=== PATIENT | male | born 1960 | race Caucasian/White ===

== ENCOUNTER 2017-03-26 15:00 | Inpatient (IN) | payer OTHER ==
[~2017-03-26] VITALS: Ht 182.9 cm; Wt 79.4 kg
--- NOTE | ~2017-03-26 | PN ---
Unit #: [id number] #: [id number] Patient: NAYA MONAE [id number] [facility] [address] [place] [address] [id number] MR#: [id number] NAME: NAYA MONAE. ROOM: P179 Age: 57 Sex: M Admission Date: 03/26/2017 : 1960 Attending Physician: Brigitte Ledezma M.D. Admitting Physician: Brigitte Ledezma M.D. Primary Care Physician: Generic Doctor Not In System [facility] PROGRESS NOTES DATE OF SERVICE 03/28/2017 DISCUSSION Mr. Monae is a 57-year-old white male who was seen today. Chart was reviewed and case was discussed with the staff. He remains anxious, withdrawn, depressed, and rather seclusive to himself. Meanwhile, he has been cooperative with the treatment recommendations and has been taking the medications and tolerating them fairly well with no reported side effects. MENTAL STATUS EXAMINATION Middle-aged white male who is casually dressed with fair personal hygiene, appears to be in no acute distress or discomfort. He was awake and alert with impaired attention and concentration. His mood is anxious with congruent affect. He denies any suicidal or homicidal ideations and also denies any auditory or visual hallucinations. His insight and judgment remain slightly impaired. TREATMENT PLAN 1. We will continue him on his current medications and treatment protocol. We will monitor his response to the medications and make further adjustments as needed. 2. We will continue to follow up. Dictated by... Lou Roberts/rehan TD: 03/28/2017 09:58 JOB #: [id number] Unit #: [id number] #: [id number] Patient: NAYA MONAE [facility] PROGRESS NOTES Page 1 of 1 X Brigitte Ledezma MD PROGRESS NOTE
--- NOTE | ~2017-03-26 | CO ---
Unit #: [id number] #: [id number] Patient: NAYA MONAE [id number] [facility] [address] [place] [address] [id number] MR#: [id number] NAME: NAYA MONAE. ROOM: P1 Age: 57 Sex: M Admission Date: 03/26/2017 : 1960 Attending Physician: Brigitte Ledezma M.D. Consultation Date: 03/28/2017 CONSULTATION REPORT ORDERING PROVIDER Dr. Ledezma. REASON FOR CONSULT Reactive RPR. SUBJECTIVE The patient does have a history of risky behaviors including drug abuse and alcohol abuse; however, he has no known knowledge of having syphilis. OBJECTIVE RPR came back positive. Confirmatory testing was not done. ASSESSMENT Positive rapid plasma reagin. PLAN Plan is to get confirmatory testing with an FTA and ABS. Nursing is to call provider on-call if this test is positive. Dictated by... Zita Bray A.P.R.N. for Lou Motta/selam TD: 03/28/2017 14:45 JOB #: [id number] CONSULTATION REPORT Page 1 of 1 X ZITA BRAY APRN CONSULTATION REPORT
--- NOTE | ~2017-03-26 | DS ---
Unit #: [id number] #: [id number] [facility]: [facility] [id number] [facility] [address] [place] [address] [id number] MR#: [id number] NAME: NAYA MONAE. ROOM: P179 Age: 57 Sex: M Admission Date: 03/26/2017 : 1960 Discharge Date: 03/31/2017 Attending Physician: Brigitte Ledezma M.D. DISCHARGE SUMMARY IDENTIFYING DATA Mr. Monae is a 57-year-old single white male, who is a resident of [place], [place], and was self-referred to the hospital on voluntary basis with a blood alcohol level of 0.130 and a chief complaint of "I've been drinking a fifth of gin a day." DISCHARGE DIAGNOSES Psychiatric: Alcohol dependence, moderate and acute withdrawals; alcohol-induced mood disorder; cocaine abuse, moderate; opioid abuse, moderate. Medical: Hypertension and coronary artery disease. Stressors: Mild psychosocial stressors. HISTORY OF PRESENT ILLNESS Please see initial psychiatric evaluation for details. PAST PSYCHIATRIC HISTORY Please see initial psychiatric evaluation for details. PAST MEDICAL HISTORY Please see initial psychiatric evaluation for details. HOSPITAL COURSE The patient was admitted to the adult psychiatric and chemical dependency unit at [facility] oswaldo Persaud and was oriented to the hospital environment. Routine p.r.n. medications were initiated, and he was started on the detox protocol and was closely monitored. He was taking the medications regularly and was tolerating them fairly well and was able to show a decent and therapeutic response and was able to come out of the detox without any complications and was wanting to go home and was willing to continue treatment on an outpatient basis and as such, it was decided that he will be discharged home and will continue treatment on an outpatient basis. DISCHARGE MEDICATIONS Ecotrin 81 mg a day for coronary artery disease, Lipitor 10 mg b.i.d. for dyslipidemia, Zestril 5 mg a day for hypertension. DISCHARGE CONDITION Stable. PROGNOSIS Fair. Unit #: [id number] #: [id number] Patient: NAYA MONAE Dictated by... Brigitte Ledezma M.D. IAA/modl TD: 04/02/2017 00:09 JOB #: [id number] DISCHARGE SUMMARY Page 1 of 1 X Brigitte Ledezma MD DISCHARGE SUMMARY
--- NOTE | ~2017-03-26 | HP ---
Unit #: [id number] #: [id number] Patient: NAYA MONAE [id number] [place] [address] [id number] MR#: [id number] NAME: NAYA MONAE. ROOM: P1 Age: 57 Sex: M Admission Date: 03/26/2017 : 1960 Attending Physician: Brigitte Ledezma M.D. Admitting Physician: Brigitte Ledezma M.D. Primary Care Physician: Generic Doctor Not In System HISTORY AND PHYSICAL HISTORY OF PRESENT ILLNESS The patient is a 57-year-old male admitted to [facility] on 03/26/2017 to detox from alcohol. PAST MEDICAL HISTORY 1. Hypertension. 2. Hyperlipidemia. PAST SURGICAL HISTORY 1. Heart stent x2. 2. Appendectomy. ALLERGIES No known drug allergies. SOCIAL HISTORY He is unemployed. He lives with his brother. He smokes 1 pack of cigarettes daily. Drinks a fifth per day of gin and has used heroin in the past. FAMILY HISTORY Noncontributory. REVIEW OF SYSTEMS CONSTITUTIONAL: No fever or chills. HEENT: Denies any sore throat, ear pain or runny nose. CARDIOVASCULAR: Denies chest pain, irregular heart rhythm or palpitations. CHEST: Denies shortness of breath or cough. No hemoptysis. GASTROINTESTINAL: Denies nausea, vomiting, diarrhea or chronic constipation. ENDOCRINE: Denies history of increased thirst or urination. No recent significant weight loss or gain. GENITOURINARY: Denies dysuria, frequency, or hematuria. SKIN: Denies any rashes. HEMATOLOGIC: Denies history of increased bleeding or bruising. MUSCULOSKELETAL: Denies any hot, swollen joints. No generalized muscle pain. NEUROLOGIC: Denies problems with vision or speech. No frequent, severe headaches. No numbness, tingling or weakness in any extremities. Denies loss of bladder or bowel control. CURRENT MEDICATIONS 1. Aspirin. Unit #: [id number] #: [id number] Patient: NAYA MONAE 2. Simvastatin. 3. Lisinopril. 4. Carvedilol. 5. Nitroglycerin. PHYSICAL EXAMINATION GENERAL: He is awake, alert, oriented, in no acute distress. VITAL SIGNS: Temperature 97.9, heart rate 89, respirations 16, blood pressure 136/79. HEIGHT: 6 feet 0. WEIGHT: 175 pounds. SKIN: Warm and dry without rash or lesion. HEENT: Normocephalic. TMs not viewed. Oral and nasal passages clear. Conjunctivae clear. PERRLA. EOMs intact. NECK: Supple without lymphadenopathy or thyromegaly. HEART: Regular rate and rhythm without murmur. LUNGS: Clear. ABDOMEN: Soft, nontender. : Not done. EXTREMITIES: No evidence of cyanosis, clubbing or edema. Moves all without focal deficit. NEUROLOGICAL: Grossly within normal limits. Cranial Nerves: II: Visual mccabe are intact. III, IV AND : Extraocular movements are intact. Pupils are equal, round and reactive to light. V: Facial sensation is grossly normal. VII: Facial movements and expression are normal. VIII: Auditory acuity grossly intact. IX, X: Uvula is midline. Phonation is normal. XI: Patient shrugs shoulders and turns head normally. XII: Tongue protrudes in the midline. Sensory and Motor Function: Sensory and motor sensation is grossly normal. Motor: moves all extremities well. Coordination: Gait is normal. Deep Tendon Reflexes: Intact. IMPRESSION 1. Psychiatric admission. 2. Hypertension. 3. Hyperlipidemia. 4. Heart disease. 5. Nicotine dependence. 6. Alcohol dependence. RECOMMENDATIONS PSYCHIATRIC: Per psychiatrist. MEDICAL: No contraindication to participate in facility's activities. MEDICAL PROGNOSIS Good. MEDICAL CONDITION Stable. Dictated by... Zita Bray A.P.R.N. Unit #: [id number] #: [id number] Patient: NAYA MONAE Reynaldo ROYAL/ale TD: 03/27/2017 22:38 JOB #: [id number] HISTORY AND PHYSICAL Page 1 of 1 X ZITA BRAY APRN HISTORY AND PHYSICAL
--- NOTE | ~2017-03-26 | PN ---
Unit #: [id number] #: [id number] Patient: NAYA MONAE [id number] [facility] [address] [place] [address] [id number] I MR#: [id number] NAME: NAYA MONAE. ROOM: P179 Age: 57 Sex: M Admission Date: 03/26/2017 : 1960 Attending Physician: Brigitte Ledezma M.D. Admitting Physician: Brigitte Ledezma M.D. Primary Care Physician: Adilene Doctor Not In System [facility] PROGRESS NOTES DATE March 30, 2017 DISCUSSION Mr. Monae is a 57-year-old white male, who was seen today and chart was reviewed and the case was discussed with the staff. He has been anxious, withdrawn, and seclusive to himself. Meanwhile, he has been cooperative with the treatment recommendations and he has been taking the medications and tolerating them fairly well with no reported side effects. MENTAL STATUS EXAMINATION Middle-aged white male, who was casually dressed with fair personal hygiene and appears to be in no acute distress or discomfort. He was awake and alert on interaction with intact orientation. His mood is anxious with a congruent affect. He denies any suicidal or homicidal ideations, and also denies any auditory or visual hallucinations. His insight and judgment remain slightly impaired. TREATMENT PLAN 1. We will continue him on his current medications and treatment protocol, and will monitor his response to the medications, and make further adjustments as needed. 2. We will continue to followup. Dictated by... Lou Roberts/gopal TD: 03/31/2017 09:06 JOB #: [id number] Unit #: [id number] #: [id number] Patient: NAYA MONAE [facility] PROGRESS NOTES Page 1 of 1 X Brigitte Ledezma MD PROGRESS NOTE
--- NOTE | ~2017-03-26 | PA ---
Unit #: [id number] #: [id number] Patient: NAYA MONAE [id number] [facility] [address] [place] [address] [id number] I MR#: [id number] NAME: NAYA MONAE. ROOM: P179 Age: 57 Sex: M Admission Date: 03/26/2017 : 1960 Date of Assessment: 03/27/2017 Attending Physician: Brigitte Ledezma M.D. Admitting Physician: Brigitte Ledezma M.D. Primary Care Physician: Generic Doctor Not In System PSYCHIATRIC ASSESSMENT IDENTIFICATION DATA The patient is a 57-year-old single white male who is a resident of [place], [place], and was self-referred to the hospital on voluntary basis. Upon presentation, he had a blood alcohol level of 0.130. CHIEF COMPLAINT "I have been drinking a fifth of gin a day." HISTORY OF PRESENT ILLNESS The patient is a 57-year-old white male with history of alcohol dependence who was brought to the hospital by his sister for alcohol dependence and reported that he has been drinking a fifth of gin on a daily basis. 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 The patient reports increasing depression, anxiety, irritability, and feelings of hopelessness and helplessness. Denies any suicidal or homicidal ideation. He also reports using heroin nasally once a month with a history of addiction to pain medication with a last use of heroin 3 months ago and reports using cocaine once a month, and the last use was 1 week ago. However, he was seen to be expressing significant depression with feelings of hopelessness and helplessness, and as such recommendation for inpatient level of care for safety and stabilization was made, and the patient was transferred to us. SUBSTANCE ABUSE HISTORY The patient reports a history of experimentation with opioids and cocaine, but alcohol has been his drug of choice. it was reported that he has been drinking since he was 12 years old and currently has been drinking a fifth of gin on a daily basis. PAST PSYCHIATRIC HISTORY The patient has had a history of chemical dependence treatment at [facility] and at [facility]. Review of the medical records indicated currently he is not active in any treatment program. He is not seeing a psychiatrist and he is not taking any psychotropic medications. PAST MEDICAL HISTORY 1. Hypertension. 2. Coronary artery disease. CURRENT MEDICATIONS None. Unit #: [id number] #: [id number] Patient: NAYA MONAE ALLERGIES No known medication allergies. PERSONAL AND SOCIAL HISTORY A 57-year-old white male who reported that he is single, unemployed, and lives with his brother and has fairly decent social support system. MENTAL STATUS EXAMINATION Middle-aged white male who is casually dressed with fair personal hygiene. Appears to be in no acute distress or discomfort. He was awake and alert and interaction with intact orientation. His mood is anxious and depressed with congruent affect. Speech is slow and goal-directed. He denies any suicidal or homicidal ideations and also denies any auditory or visual hallucinations. His insight and judgment remain significantly impaired. DIAGNOSTIC IMPRESSION PSYCHIATRIC: Alcohol dependence, moderate, in acute withdrawals. Alcohol-induced mood disorder. Cocaine abuse, moderate. Opiate abuse, moderate. MEDICAL: None. STRESSORS: Moderate psychosocial stressors. TREATMENT PLAN 1. The patient has presented with history of mood disorder and has been decompensating and will need inpatient hospitalization for safety and stabilization. We will start him back on his home medications. We will adjust the medications and monitor response. 2. Supportive therapy was provided to the patient. 3. Safe, structured, and nourishing environment will be provided. ESTIMATED LENGTH OF STAY 5 to 7 days. ABILITY TO HELP SELF Limited. WILLINGNESS TO HELP The patient appears to be willing to help self. STRENGTHS 1. Communicative. 2. Cooperative. PROBLEMS 1. Chronic dysphoric symptoms. 2. Chronic chemical dependency. 3. Poor social support system. DISCHARGE CRITERIA This will be contingent upon the patient's ability to show resolution of his depression and anxiety and his ability to stay safe to himself, particularly after discharge from the hospital. Unit #: [id number] #: [id number] Patient: NAYA MONAE Dictated by.Lou Humphrey/rehan TD: 03/27/2017 12:52 JOB #: [id number] PSYCHIATRIC ASSESSMENT Page 1 of 1 X Brigitte Ledezma MD PSYCHIATRIC ASSESSMENT
--- NOTE | ~2017-03-26 | PN ---
Unit #: [id number] #: [id number] Patient: NAYA MONAE [id number] [facility] [address] [place] [address] [id number] I MR#: [id number] NAME: NAYA MONAE. ROOM: P179 Age: 57 Sex: M Admission Date: 03/26/2017 : 1960 Attending Physician: Brigitte Ledezma M.D. Admitting Physician: Brigitte Ledezma M.D. Primary Care Physician: Generic Doctor Not In System [facility] PROGRESS NOTES DATE 03/29/2017 DISCUSSION Mr. Monae is a 57-year-old white male who was seen today and chart was reviewed and case was discussed with the staff. He has been anxious, withdrawn and somewhat irritable and showing poor insight into his situation and poor motivation and wanting to leave and stated that he does not feel comfortable here. Meanwhile, he has been taking medications and tolerating them fairly well with no reported side effects. MENTAL STATUS EXAMINATION Middle-aged white male who was casually dressed with fair personal hygiene and appears to be in no acute distress or discomfort. He was awake and alert with intact orientation. His mood was anxious with congruent affect. He denies any suicidal or homicidal ideations. His insight and judgement remains slightly impaired. TREATMENT PLAN 1. Will continue on his current medications and treatment protocol. Will monitor his response to the medications and make further adjustments as needed. 2. Will continue to follow up. Dictated by... Lou Roberts/ale TD: 03/29/2017 21:06 JOB #: [id number] Unit #: [id number] #: [id number] Patient: NAYA MONAE [facility] PROGRESS NOT[facility] Page 1 of 1 X Brigitte Ledezma MD PROGRESS NOTE
[~2017-03-26 15:00] MED LIST: CONCERTA18 MG PO; VASOTEC PO; ZOCOR PO
[2017-03-27 12:35] LABS: BASOPHIL# 0.1 X10e3 (0-0.3); BASOPHIL% 1.1 % (0-2.5); EOSINOPHIL# 0.1 X10e3 (0-0.7); EOSINOPHIL% 0.6 % (0.0-7.0); HEMATOCRIT 40.9 % (38.0-50.0); HEMOGLOBIN 13.7 gm/dL (13.0-16.0); LYMPHOCYTE# 1.4 X10e3 (1.0-3.5); LYMPHOCYTE% 16.5 % (17.0-45.0); MEAN CELL VOLUME 98.4 FL (83-96); MEAN CORPUSCULAR HEMOGLOBIN 32.9 PG (28-34); MEAN CORPUSCULAR HGB CONC 33.4 g/dL (30-36); MEAN PLATELET VOLUME 8.3 FL (6.5-11.5); MONOCYTE# 1.6 X10e3 (0-1.0); MONOCYTE% 19.1 % (3.0-12.0); NEUTROPHIL# 5.3 X10e3 (1.5-7.1); NEUTROPHIL% 62.7 % (40-75); PLATELET COUNT 279 X10e3 (140-420); RED BLOOD COUNT 4.16 X10e (3.90-5.60); RED CELL DISTRIBUTION WIDTH 14.1 % (11.0-15.5); WHITE BLOOD COUNT 8.5 X10e3 (4.0-10.5)
[2017-03-27 12:38] LABS: DIFF IND NO
[2017-03-27 13:06] LABS: ALBUMIN SERUM 3.4 g/dL (3.5-5.0); BILIRUBIN,TOTAL 0.7 mg/dL (0.2-2.0); BUN/CREATININE RATIO 11.11; CALCIUM SERUM 9.1 mg/dL (8.4-10.2); CREATININE SERUM 0.9 mg/dL (0.6-1.4); GLOM FILT RATE Estimated 93.8 mL/min (>60); POTASSIUM 4.2 mmol/L (3.5-5.1)
[2017-03-31 09:41] LABS: URINE APPEARANCE CLEAR; URINE BILIRUBIN NEG (NEG); URINE BLOOD NEG (NEG); URINE COLOR YELLOW; URINE GLUCOSE NEG (NEG); URINE KETONE NEG (NEG); URINE LEUKOCYTE ESTERASE NEG (NEG); URINE NITRATE NEG (NEG); URINE PROTEIN NEG (NEG); URINE SPECIFIC GRAVITY 1.004 (1.003-1.035); URINE UROBILINOGEN 0.2 MG/DL (NEG)
[2017-03-31 10:12] LABS: AMPHETAMINE NEG (NEG); BARBITURATES NEG (NEG); BENZODIAZEPINES NEG (NEG); COCAINE NEG (NEG); MARIJUANA NEG (NEG); OPIATES NEG (NEG); TRICYCLIC ANTIDEPRESSANTS NEG (NEG); U METHADONE NEG (NEG)
== END 2017-03-31 12:25 | DRG 897 ==
LOC: P1E 17:56
PROVIDERS: Psychiatry & Neurology Psychiatry
DX: F10.239 Alcohol dependence with withdrawal, unspecified (principal); F11.10 Opioid abuse, uncomplicated; I10 Essential (primary) hypertension; F10.24 Alcohol dependence with alcohol-induced mood disorder; Y90.6 Blood alcohol level of 120-199 mg/100 ml; I25.10 Atherosclerotic heart disease of native coronary artery without angina pectoris; F14.10 Cocaine abuse, uncomplicated; F17.210 Nicotine dependence, cigarettes, uncomplicated; E78.5 Hyperlipidemia, unspecified; R76.8 Other specified abnormal immunological findings in serum
CPT/HCPCS: 80053; 80307; 81003; 85025; 86592; 86780; J0561